=== PATIENT | female | born 1955 | race Caucasian/White ===

== ENCOUNTER → 2017-09-04 | Outpatient (CLI) | payer BC ==
[~2017-09-04] MED LIST: CENTRUM SILVER1 CTB PO; FLEXERIL10 MG PO; HYDROCODONE BIT1 T44 PO; MACROBID 100MG100 MG PO; MULTI VITAMINS1 TA1 PO; NORCO 325 MG-51 TAB PO; PERCOCET 325 MG1 TA4 PO; PERCOCET 5/3251 EACH PO; PHENTERMINE H37.5 M1 PO; VOLTAREN75 MG PO
--- NOTE | 2017-09-04 12:50 | RADIOLOGY REPORT PS360 ---
KNEE-3 VIEWS-RT COMPARISON: Left knee 11/28/2007 HISTORY: Right knee pain and swelling TECHNIQUE: AP lateral and oblique views FINDINGS: There is mild joint space narrowing medially and there is mild narrowing of the patellofemoral space. There is no fracture or loose body and I see no effusion. The soft tissues are grossly normal. IMPRESSION: Minor degenerative changes of the knee as noted
== END ==
LOC: RAD 11:05
DX: M25.561 Pain in right knee (principal); M25.461 Effusion, right knee; G89.29 Other chronic pain